=== PATIENT | female | born 1945 | race Native Hawaiian/Other Pacific Islander ===

== ENCOUNTER 2020-09-14 09:12 | Outpatient (CLI) | payer OTHER ==
[2020-09-14 09:49] LABS: PLATELET COUNT 230 K/uL (152-353)
[2020-09-14 10:36] LABS: POTASSIUM 3.6 mmol/L (3.6-5.2)
== END 2020-09-14 20:42 | disposition home or self-care (01) ==
LOC: LABW 09:12
PROVIDERS: ATTEND Internal Medicine
DX: I10 Essential (primary) hypertension (principal); Z79.899 Other long term (current) drug therapy
CPT/HCPCS: 36415; 80053; 80061; 83036; 84443; 85027

== ENCOUNTER 2021-09-20 08:44 | Outpatient (CLI) | payer OTHER ==
[2021-09-20 09:24] LABS: PLATELET COUNT 235 K/uL (152-353)
[2021-09-20 09:30] LABS: POTASSIUM 3.9 mmol/L (3.6-5.2)
== END 2021-09-20 20:14 | disposition home or self-care (01) ==
LOC: LABW 08:44
PROVIDERS: ATTEND Internal Medicine
DX: Z00.00 Encounter for general adult medical examination without abnormal findings (principal); I10 Essential (primary) hypertension; Z79.899 Other long term (current) drug therapy
CPT/HCPCS: 36415; 80053; 80061; 83036; 84443; 85027

== ENCOUNTER 2022-09-27 08:10 | Outpatient (CLI) | payer OTHER ==
[2022-09-27 08:30] LABS: PLATELET COUNT 227 K/uL (152-353)
[2022-09-27 08:48] LABS: POTASSIUM 3.8 mmol/L (3.6-5.2)
== END 2022-09-27 18:59 | disposition home or self-care (01) ==
LOC: LABW 08:10
PROVIDERS: ATTEND Internal Medicine
DX: Z00.00 Encounter for general adult medical examination without abnormal findings (principal); I10 Essential (primary) hypertension; R73.03 Prediabetes; Z79.899 Other long term (current) drug therapy
CPT/HCPCS: 36415; 80053; 80061; 83036; 84443; 85027

== ENCOUNTER 2022-12-13 11:05 | Emergency (ER) | payer OTHER ==
[~2022-12-13] VITALS: Ht 157.5 cm; Wt 118.8 kg
[2022-12-13 11:05] VITALS: TEMP 99.2
[2022-12-13 11:33] LABS: PLATELET COUNT 330 K/uL (152-353)
[2022-12-13 17:30] VITALS: BP 142/68
== END 2022-12-13 17:30 | disposition home or self-care (01) ==
LOC: ED 11:05
PROVIDERS: Emergency Medicine
DX: E86.0 Dehydration (principal); I95.1 Orthostatic hypotension; E87.6 Hypokalemia
CPT/HCPCS: 80053; 81002; 84484; 85027; 93005; 96360; 99284